=== PATIENT | male | born 1960 | race African-American/Black ===

== ENCOUNTER 2017-06-28 19:00 | Emergency (ER) | payer SELFPAY ==
[~2017-06-28] VITALS: Ht 190.5 cm; Wt 71.7 kg
[2017-06-28 19:50] VITALS: BP 127/88
[2017-06-28] MEDS ORDERED: IBUPROFEN600 MG ORAL (20:27)
[2017-06-28 21:09] VITALS: BP 127/88
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
--- NOTE | 2017-06-29 13:12 | Diagnostic Imaging Report ---
Indication: Pain Technique: XRAY Hip Routine 2v+ R Comparison: None Findings: There is no acute fracture or dislocation. Lucency projecting over the superior pubic ramus and frontal view likely related to air/stool in the rectum as there is likely some degree of rotation given this projects over the lower sacrum. This is not seen on the frog lateral view. Impression: No acute fracture or dislocation.
--- NOTE | 2017-06-29 13:13 | Diagnostic Imaging Report ---
Indication: Pain Technique: XRAY Foot Complete R Comparison: None Findings: There is no acute fracture or dislocation. Joint spaces and bony alignment within normal limits. No radiopaque foreign body seen. Impression: No acute fracture or dislocation.
== END 2017-06-28 21:10 | disposition home or self-care (01) ==
LOC: EMR 19:50
DX: S80.811A Abrasion, right lower leg, initial encounter (principal); M25.571 Pain in right ankle and joints of right foot; M25.551 Pain in right hip; M79.604 Pain in right leg; R10.31 Right lower quadrant pain; Z88.0 Allergy status to penicillin; V89.2XXA Person injured in unspecified motor-vehicle accident, traffic, initial encounter; Y92.488 Other paved roadways as the place of occurrence of the external cause
CPT/HCPCS: 99284